=== PATIENT | male | born 1950 | race Caucasian/White ===

== ENCOUNTER 2016-07-09 09:16 | Outpatient (CLI) | payer MEDICARE, OTHER | END 2016-07-09 09:17 | disposition home or self-care (01) | DX: E11.9 Type 2 diabetes mellitus without complications (principal); D50.9 Iron deficiency anemia, unspecified ==

== ENCOUNTER 2016-07-10 10:35 | Outpatient (CLI) | payer MEDICARE, OTHER | END 2016-07-10 10:36 | disposition home or self-care (01) | DX: D64.9 Anemia, unspecified (principal) ==

== ENCOUNTER 2016-07-16 15:50 | Outpatient (CLI) | payer MEDICARE, OTHER | END 2016-07-16 15:51 | disposition home or self-care (01) | DX: G47.33 Obstructive sleep apnea (adult) (pediatric) (principal) | CPT/HCPCS: 99215; G0463 ==

== ENCOUNTER 2016-09-04 15:37 | Outpatient (CLI) | payer MEDICARE, OTHER | END 2016-09-04 15:38 | disposition home or self-care (01) | DX: G47.33 Obstructive sleep apnea (adult) (pediatric) (principal) | CPT/HCPCS: 99214; G0463 ==

== ENCOUNTER 2016-10-04 10:31 | Outpatient (CLI) | payer MEDICARE, OTHER | END 2016-10-04 10:32 | disposition home or self-care (01) | DX: E11.9 Type 2 diabetes mellitus without complications (principal) ==

== ENCOUNTER 2016-11-06 15:44 | Outpatient (CLI) | payer MEDICARE, OTHER | END 2016-11-06 15:45 | disposition home or self-care (01) | LOC: SC 15:44 | PROVIDERS: ATTEND Nurse Practitioner Family | DX: G47.33 Obstructive sleep apnea (adult) (pediatric) (principal) | CPT/HCPCS: 99214; G0463; 99212 ==

== ENCOUNTER 2017-01-08 08:35 | Outpatient (CLI) | payer MEDICARE, OTHER ==
[2017-01-08 14:01] LABS: BASOPHILS # (AUTO) 0.1 10^3/uL (0.0-0.1); BASOPHILS % (AUTO) 0.9 %; EOSINOPHILS # (AUTO) 0.2 10^3/uL (0.0-0.7); EOSINOPHILS % (AUTO) 3.1 %; HCT - HEMATOCRIT 29.3 % (42.0-52.0); HGB - HEMOGLOBIN 10.8 g/dL (14.0-18.0); LYMPHOCYTES % (AUTO) 15.5 %; MEAN CORPUSCULAR HEMOGLOBIN 32.9 pg (27.0-31.0); MEAN CORPUSCULAR HGB CONC 36.9 g/dL (32.0-36.0); MEAN CORPUSCULAR VOLUME 89.2 fL (80.0-94.0); MEAN PLATELET VOLUME 7.6 fL (7.4-11.4); MONOCYTES # (AUTO) 0.6 10^3/uL (0.0-1.0); NEUTROPHILS # (AUTO) 4.6 10^3/uL (1.5-6.6); NEUTROPHILS % (AUTO) 71.5 %; RED BLOOD COUNT 3.29 10^6/uL (4.70-6.10); RED CELL DISTRIBUTION WIDTH 12.8 % (12.0-15.0); UNCORRECTED WHITE BLOOD COUNT 6.4 x10^3/uL; WHITE BLOOD COUNT 6.4 x10^3/uL (4.8-10.8)
[2017-01-08 14:21] LABS: HEMOGLOBIN A1C 0.64 g/dL
== END 2017-01-08 08:36 | disposition home or self-care (01) ==
LOC: LAB.WCP 08:35
PROVIDERS: ATTEND Family Medicine
DX: D64.9 Anemia, unspecified (principal); E11.9 Type 2 diabetes mellitus without complications; I25.10 Atherosclerotic heart disease of native coronary artery without angina pectoris; I10 Essential (primary) hypertension
CPT/HCPCS: 36415; 83036; 85025

== ENCOUNTER 2017-02-06 08:36 | Outpatient (CLI) | payer MEDICARE, OTHER ==
[2017-02-06 12:32] LABS: BASOPHILS % (AUTO) 1.1 %; EOSINOPHILS # (AUTO) 0.2 10^3/uL (0.0-0.7); EOSINOPHILS % (AUTO) 4.6 %; HCT - HEMATOCRIT 28.7 % (42.0-52.0); HGB - HEMOGLOBIN 10.4 g/dL (14.0-18.0); LYMPHOCYTES # (AUTO) 0.8 10^3/uL (1.5-3.5); LYMPHOCYTES % (AUTO) 19.9 %; MEAN CORPUSCULAR HEMOGLOBIN 32.5 pg (27.0-31.0); MEAN CORPUSCULAR HGB CONC 36.1 g/dL (32.0-36.0); MEAN CORPUSCULAR VOLUME 90.1 fL (80.0-94.0); MEAN PLATELET VOLUME 7.8 fL (7.4-11.4); MONOCYTES # (AUTO) 0.5 10^3/uL (0.0-1.0); MONOCYTES % (AUTO) 12.1 %; NEUTROPHILS # (AUTO) 2.5 10^3/uL (1.5-6.6); NEUTROPHILS % (AUTO) 62.3 %; RED BLOOD COUNT 3.19 10^6/uL (4.70-6.10); RED CELL DISTRIBUTION WIDTH 13.2 % (12.0-15.0)
== END 2017-02-06 08:37 | disposition home or self-care (01) ==
LOC: LAB.WCP 08:36
PROVIDERS: ATTEND Family Medicine
DX: D64.9 Anemia, unspecified (principal)
CPT/HCPCS: 36415; 85025

== ENCOUNTER 2017-02-12 15:39 | Outpatient (CLI) | payer MEDICARE, OTHER | END 2017-02-12 15:40 | disposition home or self-care (01) | LOC: SC 15:39 | PROVIDERS: ATTEND Nurse Practitioner Family | DX: G47.33 Obstructive sleep apnea (adult) (pediatric) (principal) | CPT/HCPCS: 99214; G0463; 99212 ==

== ENCOUNTER 2017-03-13 15:13 | Emergency (ER) | payer MEDICARE, OTHER ==
[2017-03-13 15:54] LABS: CALCIUM 9.6 mg/dL (8.5-10.3); POTASSIUM 5.3 mmol/L (3.5-5.0)
--- NOTE | 2017-03-13 16:49 | ED Physician Documentation ---
History of Present Illness - Stated complaint Stated Complaint: ABN LABS/EKG - Chief complaint Chief Complaint: General - History obtained from History obtained from: Patient - History of Present Illness Timing: Other (66-year-old gentleman without renal disease had follow-up labs done in the clinic and showed a potassium of 6.0 and he was referred here. He feels fine.) Review of Systems Constitutional: denies: Fever, Chills Nose: denies: Rhinorrhea / runny nose, Congestion Cardiac: denies: Chest pain / pressure, Palpitations Respiratory: denies: Dyspnea, Cough PD PAST MEDICAL HISTORY - Past Medical History Past Medical History: Yes Cardiovascular: Hypertension, High cholesterol, Coronary artery disease, [place] Respiratory: Sleep apnea Neuro: None Endocrine/Autoimmune: Type 2 diabetes GI: GERD : None HEENT: Chronic vision loss Psych: Depression Musculoskeletal: Osteoarthritis, Osteoporosis Derm: Eczema - Past Surgical History Past Surgical History: Yes General: Cholecystectomy Ortho: Carpal Tunnel surgery Cardiovascular: Coronary stent HEENT: Cataracts - Present Medications Home Medications: Ambulatory Orders Medication Instructions Recorded Confirmed Fluoxetine HCl [Prozac] 60 mg PO DAILY 07/11/14 03/13/17 Aspirin [James Chewable Aspirin] 1 tab PO DAILY 07/27/15 03/13/17 Carvedilol Phosphate [Coreg Cr] 1 cap PO DAILY 07/27/15 03/13/17 Cholecalciferol (Vitamin D3) 1,000 unit PO DAILY 07/27/15 03/13/17 [Vitamin D3] Famotidine [Pepcid AC] 20 mg PO DAILY 07/27/15 03/13/17 Ferrous Sulfate 1 tab PO DAILY 07/27/15 03/13/17 Gemfibrozil 1 tab PO BID 07/27/15 03/13/17 Insulin Lispro [Humalog Kwikpen 30 - 40 units SUBQ TIDWM 07/27/15 03/13/17 U-100] Multivitamin [Multivitamins] 1 cap PO DAILY 07/27/15 03/13/17 Rosuvastatin Calcium [Crestor] 1 tab PO QPM 07/27/15 03/13/17 traZODone [Desyrel] 50 mg PO DAILY PRN 07/27/15 03/13/17 Albiglutide [Tanzeum] 30 mg PO Q7D 03/13/17 03/13/17 Ezetimibe [Zetia] 10 mg PO DAILY 03/13/17 03/13/17 Losartan [Cozaar] 50 mg PO DAILY 03/13/17 03/13/17 Turmeric Root Extract [Turmeric] 500 mg PO DAILY 03/13/17 03/13/17 - Allergies Allergies/Adverse Reactions: Allergies Allergy/AdvReac Type Severity Reaction Status Date / Time fexofenadine Allergy Unknown Unknown Verified 03/13/17 15:21 guaifenesin Allergy Unknown Unknown Verified 03/13/17 15:21 atorvastatin calcium * Allergy Unknown Verified 03/13/17 15:21 [From Lipitor] shellfish derived AdvReac Intermediate Emesis Verified 03/13/17 15:21 - Social History Does the pt smoke?: No Smoking Status: Never smoker Does the pt drink ETOH?: No Does the pt have substance abuse?: No - Immunizations Immunizations are current?: Yes - POLST Patient has POLST: No PD ED PE NORMAL - Vitals Vital signs reviewed: Yes - General General: Alert and oriented X 3, No acute distress - Derm Derm: Normal color, Warm and dry - Extremities Extremities: No deformity, No tenderness to palpate, No calf tenderness / cord - Neuro Neuro: Alert and oriented X 3, Normal speech - Psych Psych: Normal mood, Normal affect Results - Vitals Vitals: Vital Signs - 24 hr 03/13/17 15:17 Temperature 36.4 C L Heart Rate 78 Respiratory 20 Rate Blood Pressure 145/75 H O2 Saturation 97 Oxygen O2 Source Room air - Labs Labs: Laboratory Tests 03/13/17 15:41 Sodium 137 Potassium 5.3 H Chloride 106 Carbon Dioxide 25 Anion Gap 6.0 BUN 23 H Creatinine 1.0 Estimated GFR (MDRD) 75 L Glucose 164 H Calcium 9.6 PD MEDICAL DECISION MAKING - ED course ED course: Recheck potassium was much lower confirming some level of pseudohyperkalemia. Departure - Departure Disposition: 01 Home, Self Care Clinical Impression: Hyperkalemia Hypertension Qualifiers: Hypertension type: essential hypertension Qualified Code(s): I10 - Essential ( primary) hypertension Condition: Good Record reviewed to determine appropriate education?: Yes Instructions: Diet Low Potassium Dc Comments: Drink a large glass of water tonight and eat a low potassium diet as outlined on the other pages. Follow-up with your doctor in 1 week for recheck and repeat labs.
[2017-03-13 16:55] VITALS: BP 145/76
== END 2017-03-13 16:54 | disposition home or self-care (01) ==
LOC: ED 15:13
DX: E87.5 Hyperkalemia (principal); E78.00 Pure hypercholesterolemia, unspecified; I25.10 Atherosclerotic heart disease of native coronary artery without angina pectoris; I25.2 Old myocardial infarction; G47.30 Sleep apnea, unspecified; E11.9 Type 2 diabetes mellitus without complications; Z79.4 Long term (current) use of insulin; K21.9 Gastro-esophageal reflux disease without esophagitis; M19.90 Unspecified osteoarthritis, unspecified site; Z79.82 Long term (current) use of aspirin
CPT/HCPCS: 80048; 93005; 99282

== ENCOUNTER 2017-03-18 14:49 | Outpatient (CLI) | payer MEDICARE, OTHER ==
[2017-03-18 19:41] LABS: ALBUMIN/GLOBULIN RATIO 1.3 (1.0-2.2); BILIRUBIN,TOTAL 0.7 mg/dL (0.2-1.0); BUN - BLOOD UREA NITROGEN 21 mg/dL (6-20); CALCIUM 10.1 mg/dL (8.5-10.3); CARBON DIOXIDE - CO2 24 mmol/L (21-32); CHLORIDE 104 mmol/L (101-111); CHOL/HDL RATIO 3.5 (<5.0); CHOLESTEROL 129 mg/dL; CREATININE 0.9 mg/dL (0.6-1.2); GFR - MDRD 84 (>89); GLUCOSE 100 mg/dL (70-100); HDL CHOLESTEROL 37 mg/dL; LDL/HDL RATIO 1.1 (<3.6); SODIUM 137 mmol/L (135-145); TOTAL PROTEIN 7.7 g/dL (6.7-8.2); TRIGLYCERIDES 260 mg/dL; VLDL CHOLESTEROL 52 mg/dL
[2017-03-18 20:50] LABS: HEMOGLOBIN A1C 0.77 g/dL
== END 2017-03-18 14:50 | disposition home or self-care (01) ==
LOC: LAB.WCP 14:49
PROVIDERS: ATTEND Family Medicine
DX: E11.9 Type 2 diabetes mellitus without complications (principal); E87.1 Hypo-osmolality and hyponatremia; E55.9 Vitamin D deficiency, unspecified; I10 Essential (primary) hypertension; E78.5 Hyperlipidemia, unspecified
CPT/HCPCS: 36415; 80053; 80061; 82306; 83036

== ENCOUNTER 2017-05-20 12:30 | Outpatient (CLI) | payer MEDICARE, OTHER ==
[2017-05-20 12:48] LABS: HEMOGLOBIN A1C 0.76 g/dL
== END 2017-05-20 12:31 | disposition home or self-care (01) ==
LOC: LAB.WCP 12:30
PROVIDERS: ATTEND Family Medicine
DX: E11.9 Type 2 diabetes mellitus without complications (principal)
CPT/HCPCS: 36415; 83036

== ENCOUNTER 2017-07-17 10:39 | Emergency (ER) | payer MEDICARE, OTHER ==
[2017-07-17 11:16] LABS: BASOPHILS # (AUTO) 0.1 10^3/uL (0.0-0.1); BASOPHILS % (AUTO) 1.1 %; EOSINOPHILS # (AUTO) 0.2 10^3/uL (0.0-0.7); EOSINOPHILS % (AUTO) 3.7 %; HGB - HEMOGLOBIN 10.5 g/dL (14.0-18.0); LYMPHOCYTES # (AUTO) 0.9 10^3/uL (1.5-3.5); LYMPHOCYTES % (AUTO) 19.4 %; MEAN CORPUSCULAR HEMOGLOBIN 32.2 pg (27.0-31.0); MEAN CORPUSCULAR VOLUME 89.5 fL (80.0-94.0); MEAN PLATELET VOLUME 7.1 fL (7.4-11.4); MONOCYTES # (AUTO) 0.3 10^3/uL (0.0-1.0); MONOCYTES % (AUTO) 7.5 %; NEUTROPHILS # (AUTO) 3.1 10^3/uL (1.5-6.6); NEUTROPHILS % (AUTO) 68.3 %; PLT - PLATELET COUNT 267 10^3/uL (130-450); RED BLOOD COUNT 3.26 10^6/uL (4.70-6.10); RED CELL DISTRIBUTION WIDTH 12.3 % (12.0-15.0); WHITE BLOOD COUNT 4.5 x10^3/uL (4.8-10.8)
[2017-07-17 11:32] LABS: ALBUMIN 3.9 g/dL (3.2-5.5); ALBUMIN/GLOBULIN RATIO 1.1 (1.0-2.2); BILIRUBIN,TOTAL 0.5 mg/dL (0.2-1.0); CALCIUM 9.8 mg/dL (8.5-10.3); TOTAL PROTEIN 7.5 g/dL (6.7-8.2)
--- NOTE | 2017-07-17 13:05 | ED Physician Documentation ---
PD HPI CHEST PAIN - Stated complaint Stated Complaint: CHEST PX/SOA - Chief complaint Chief Complaint: Cardiac - History obtained from History obtained from: Patient - History of Present Illness Timing - onset: How many days ago (2) Timing - onset during: Light activity Timing - duration: Days (2) Timing - details: Gradual onset, Still present, Waxing and waning Quality: Aching, Pain Location: Left chest, Left shoulder/arm Radiation: Back Improved by: Rest Worsened by: Exertion, Inspiration, Movement, Palpation Associated symptoms: Shortness of air, Cough. No: Nausea, Vomiting, Feeling faint / dizzy, General Weakness, Palpitations Recently seen: Not recently seen Review of Systems Constitutional: reports: Myalgias, Fatigue. denies: Fever, Chills Nose: reports: Congestion Throat: denies: Sore throat Cardiac: reports: Chest pain / pressure. denies: Palpitations, Pedal edema, Calf pain Respiratory: reports: Cough. denies: Dyspnea, Wheezing GI: reports: Nausea. denies: Abdominal Pain, Vomiting, Diarrhea Skin: denies: Rash, Lesions Musculoskeletal: denies: Neck pain, Back pain Neurologic: reports: Generalized weakness. denies: Focal weakness, Numbness, Near syncope PD PAST MEDICAL HISTORY - Past Medical History Cardiovascular: Hypertension, High cholesterol, Coronary artery disease, [place] Respiratory: Sleep apnea Neuro: None Endocrine/Autoimmune: Type 2 diabetes GI: GERD : None HEENT: Chronic vision loss Psych: Depression Musculoskeletal: Osteoarthritis, Osteoporosis Derm: Eczema - Past Surgical History Past Surgical History: Yes General: Cholecystectomy Ortho: Carpal Tunnel surgery Cardiovascular: Coronary stent HEENT: Cataracts - Present Medications Home Medications: Ambulatory Orders Medication Instructions Recorded Confirmed Fluoxetine HCl [Prozac] 60 mg PO DAILY 07/11/14 04/24/17 Aspirin [James Chewable Aspirin] 1 tab PO DAILY 07/27/15 04/24/17 Carvedilol Phosphate [Coreg Cr] 1 cap PO DAILY 07/27/15 04/24/17 Cholecalciferol (Vitamin D3) 1,000 unit PO DAILY 07/27/15 04/24/17 [Vitamin D3] Famotidine [Pepcid AC] 20 mg PO DAILY 07/27/15 04/24/17 Ferrous Sulfate 1 tab PO DAILY 07/27/15 04/24/17 Gemfibrozil 1 tab PO BID 07/27/15 04/24/17 Insulin Lispro [Humalog Kwikpen 30 - 40 units SUBQ TIDWM 07/27/15 04/24/17 U-100] Multivitamin [Multivitamins] 1 cap PO DAILY 07/27/15 04/24/17 Rosuvastatin Calcium [Crestor] 1 tab PO QPM 07/27/15 04/24/17 traZODone [Desyrel] 50 mg PO DAILY PRN 07/27/15 04/24/17 Albiglutide [Tanzeum] 30 mg PO Q7D 03/13/17 04/24/17 Ezetimibe [Zetia] 10 mg PO DAILY 03/13/17 04/24/17 Losartan [Cozaar] 50 mg PO DAILY 03/13/17 04/24/17 Turmeric Root Extract [Turmeric] 500 mg PO DAILY 03/13/17 04/24/17 Benzonatate [Tessalon] 100 mg PO TID PRN #25 capsule 07/17/17 Doxycycline Monohydrate 100 mg PO BID #14 tablet 07/17/17 Naproxen [Naprosyn] 500 mg PO BID #20 tablet 07/17/17 - Allergies Allergies/Adverse Reactions: Allergies Allergy/AdvReac Type Severity Reaction Status Date / Time fexofenadine Allergy Unknown Unknown Verified 03/13/17 15:21 guaifenesin Allergy Unknown Unknown Verified 03/13/17 15:21 atorvastatin calcium * Allergy Unknown Verified 03/13/17 15:21 [From Lipitor] shellfish derived AdvReac Intermediate Emesis Verified 07/17/17 11:25 - Social History Does the pt smoke?: No Smoking Status: Never smoker Does the pt drink ETOH?: No Does the pt have substance abuse?: No - Immunizations Immunizations are current?: Yes - POLST Patient has POLST: No PD ED PE NORMAL - Vitals Vital signs reviewed: Yes - General General: Alert and oriented X 3, No acute distress, Well developed/nourished - HEENT HEENT: Ears normal, Pharynx benign - Neck Neck: Supple, no meningeal sign, No adenopathy - Cardiac Cardiac: RRR, No murmur - Respiratory Respiratory: Clear bilaterally, Other (anterior chest wall tenderness parasternal area. No rash nor sores. ) - Abdomen Abdomen: Soft, Non tender - Back Back: No CVA TTP - Derm Derm: Normal color, Warm and dry, No rash - Extremities Extremities: Normal ROM s pain, No edema, No calf tenderness / cord - Neuro Neuro: Alert and oriented X 3, No motor deficit, Normal speech - Psych Psych: Normal mood, Normal affect Results - Vitals Vitals: Oxygen O2 Source Room air - EKG (time done) 10:48 Rate: Rate (enter#) (69) Rhythm: NSR [place]: Normal Intervals: Normal RI QRS: Normal Ischemia: Normal ST segments. No: ST elevation c/w ischemia, ST depression Compare to prior EKG: Old EKG unavailable - Labs Labs: Laboratory Tests 07/17/17 07/17/17 07/17/17 10:50 10:55 10:55 WBC 4.5 L RBC 3.26 L Hgb 10.5 L Hct 29.2 L MCV 89.5 MCH 32.2 H MCHC 36.0 RDW 12.3 Plt Count 267 MPV 7.1 L Neut # 3.1 Lymph # 0.9 L [place] # 0.3 Eos # 0.2 Baso # 0.1 Absolute Nucleated RBC 0.00 Nucleated RBC % 0.0 Sodium 137 Potassium 5.0 Chloride 105 Carbon Dioxide 22 Anion Gap 10.0 BUN 27 H Creatinine 1.0 Estimated GFR (MDRD) 75 L Glucose 143 H POC Whole Bld Glucose 137 H Calcium 9.8 Total Bilirubin 0.5 AST 24 ALT 16 Alkaline Phosphatase 77 Troponin I Total Protein 7.5 Albumin 3.9 Globulin 3.6 Albumin/Globulin Ratio 1.1 Lipase 30 07/17/17 10:55 WBC RBC Hgb Hct MCV MCH MCHC RDW Plt Count MPV Neut # Lymph # [place] # Eos # Baso # Absolute Nucleated RBC Nucleated RBC % Sodium Potassium Chloride Carbon Dioxide Anion Gap BUN Creatinine Estimated GFR (MDRD) Glucose POC Whole Bld Glucose Calcium Total Bilirubin AST ALT Alkaline Phosphatase Troponin I < 0.04 Total Protein Albumin Globulin Albumin/Globulin Ratio Lipase - Rads (name of study) chest Radiology: Prelim report reviewed, EMP read contemporaneously (no acute findings ) PD MEDICAL DECISION MAKING - ED course Complexity details: reviewed results, re-evaluated patient (chest xray, ECG and labs are good. There is chest wall tenderness to palpation. No risk factors nor exam findings to suggest PE. has had URI symptoms. ), considered differential, d /w patient Departure - Departure Disposition: 01 Home, Self Care Clinical Impression: Chest wall pain Upper respiratory infection Qualifiers: URI type: unspecified URI Qualified Code(s): J06.9 - Acute upper respiratory infection, unspecified Condition: Stable Record reviewed to determine appropriate education?: Yes Instructions: ED Upper Resp Infec Abx Tx, ED Strain Chest Wall Follow-Up: Hermilo Redmond MD [Primary Care Provider] - Prescriptions: Benzonatate [Tessalon] 100 mg PO TID PRN #25 capsule PRN Reason: Cough Doxycycline Monohydrate 100 mg PO BID #14 tablet Naproxen [Naprosyn] 500 mg PO BID #20 tablet Comments: Drink lots of fluids. Continue usual medications. This sounds like a chest cold or bronchial infection with chest wall pain. There is no signs of heart attack or heart failure or pneumonia on your tests. Use naproxen twice daily for the next 7-10 days for the pains and inflammation. Doxycycline twice daily for a week for the infection. Use Tessalon if needed for cough. Recheck if not improving over the next several days. He may have some cough mildly that persists for couple of weeks. Discharge Date/Time: 07/17/17 13:46
--- NOTE | 2017-07-17 13:06 | XRAY Preliminary Report ---
Exam: XR CHEST 1 VIEW X-RAY IMPRESSION: Normal single view chest. [facility] SITE ID: [id number]
--- NOTE | 2017-07-17 13:08 | XRAY Report ---
EXAM: CHEST RADIOGRAPHY EXAM DATE: 07/17/2017 12:42 PM. CLINICAL HISTORY: Chest pain . Shortness of breath for one week. COMPARISON: 06/13/2015. TECHNIQUE: 1 view. FINDINGS: Lungs/Pleura: No focal opacities evident. No pleural effusion. No pneumothorax. Mediastinum: Within exam limitations, the cardiomediastinal contour is normal. Other: Suspect prior bariatric surgery. IMPRESSION: Normal single view chest. [facility] Referring Provider Line: [phone] SITE ID: [id number]
[2017-07-17] MEDS ORDERED: KETOROLAC 60 MG/2 ML VIAL IVP STA (13:27)
[2017-07-17] MEDS ORDERED: BENZONATATE 100 MG CAPSULE PO STA (13:27)
[2017-07-17] MEDS ORDERED: DOXYCYCLINE 100 MG TABLET PO STA (13:27)
[2017-07-17 13:38] VITALS: BP 151/83
== END 2017-07-17 13:46 | disposition home or self-care (01) ==
LOC: ED 10:39
DX: R07.89 Other chest pain (principal); J06.9 Acute upper respiratory infection, unspecified; I10 Essential (primary) hypertension; E78.00 Pure hypercholesterolemia, unspecified; I25.10 Atherosclerotic heart disease of native coronary artery without angina pectoris; I25.2 Old myocardial infarction; G47.30 Sleep apnea, unspecified; E11.9 Type 2 diabetes mellitus without complications; Z79.4 Long term (current) use of insulin; K21.9 Gastro-esophageal reflux disease without esophagitis; M19.90 Unspecified osteoarthritis, unspecified site; Z79.82 Long term (current) use of aspirin
CPT/HCPCS: 36415; 71045; 80053; 83690; 84484; 85025; 93005; 96374; 99284; A9270

== ENCOUNTER 2017-08-19 08:38 | Outpatient (CLI) | payer MEDICARE, OTHER ==
[2017-08-19 13:06] LABS: BASOPHILS # (AUTO) 0.1 10^3/uL (0.0-0.1); BASOPHILS % (AUTO) 0.9 %; EOSINOPHILS # (AUTO) 0.2 10^3/uL (0.0-0.7); EOSINOPHILS % (AUTO) 2.9 %; HGB - HEMOGLOBIN 11.1 g/dL (14.0-18.0); LYMPHOCYTES # (AUTO) 1.1 10^3/uL (1.5-3.5); LYMPHOCYTES % (AUTO) 17.3 %; MEAN CORPUSCULAR HEMOGLOBIN 32.9 pg (27.0-31.0); MEAN CORPUSCULAR HGB CONC 36.8 g/dL (32.0-36.0); MEAN CORPUSCULAR VOLUME 89.4 fL (80.0-94.0); MEAN PLATELET VOLUME 7.6 fL (7.4-11.4); MONOCYTES # (AUTO) 0.5 10^3/uL (0.0-1.0); NEUTROPHILS # (AUTO) 4.6 10^3/uL (1.5-6.6); NEUTROPHILS % (AUTO) 70.9 %; PLT - PLATELET COUNT 302 10^3/uL (130-450); RED BLOOD COUNT 3.37 10^6/uL (4.70-6.10); RED CELL DISTRIBUTION WIDTH 12.4 % (12.0-15.0); WHITE BLOOD COUNT 6.5 x10^3/uL (4.8-10.8)
[2017-08-19 13:19] LABS: PSA FREE 0.81 ng/mL (0.16-2.81)
[2017-08-19 13:20] LABS: PSA TOTAL 4.87 ng/mL (0.000-2.000)
[2017-08-19 13:32] LABS: HB2 TOTAL 11.8 g/dL; HEMOGLOBIN A1C 0.76 g/dL
[2017-08-19 13:48] LABS: ALBUMIN 4.2 g/dL (3.2-5.5); ALBUMIN/GLOBULIN RATIO 1.2 (1.0-2.2); ALKALINE PHOSPHATASE 82 IU/L (42-121); ALT ALANINE AMINOTRANSFERASE 27 IU/L (10-60); AST ASPARTATE AMINOTRANSFERASE 31 IU/L (10-42); BILIRUBIN,TOTAL 0.5 mg/dL (0.2-1.0); BUN - BLOOD UREA NITROGEN 33 mg/dL (6-20); CALCIUM 9.5 mg/dL (8.5-10.3); CARBON DIOXIDE - CO2 21 mmol/L (21-32); CHLORIDE 105 mmol/L (101-111); CHOL/HDL RATIO 3.7 (<5.0); CHOLESTEROL 121 mg/dL; CREATININE 1.1 mg/dL (0.6-1.2); GFR - MDRD 67 (>89); GLUCOSE 86 mg/dL (70-100); HDL CHOLESTEROL 33 mg/dL; LDL CHOLESTEROL,CALCULATED 25 mg/dL; LDL/HDL RATIO 0.8 (<3.6); SODIUM 136 mmol/L (135-145); TOTAL PROTEIN 7.7 g/dL (6.7-8.2); VLDL CHOLESTEROL 63 mg/dL
== END 2017-08-19 08:39 | disposition home or self-care (01) ==
LOC: LAB.WCP 08:38
PROVIDERS: ATTEND Family Medicine
DX: D64.9 Anemia, unspecified (principal); E11.9 Type 2 diabetes mellitus without complications; I25.10 Atherosclerotic heart disease of native coronary artery without angina pectoris; I10 Essential (primary) hypertension; E78.5 Hyperlipidemia, unspecified; D50.9 Iron deficiency anemia, unspecified; R97.20 Elevated prostate specific antigen [PSA]
CPT/HCPCS: 36415; 80053; 80061; 83036; 83721; 84154; 85025

== ENCOUNTER 2017-08-21 13:45 | Outpatient (CLI) | payer MEDICARE, OTHER ==
[2017-08-21] MEDS ORDERED: IOPAMIDOL-300 50 ML VIAL ONE (14:10)
[2017-08-21] MEDS ORDERED: IOPAMIDOL-300 100 ML VIAL ONE (14:10)
[2017-08-21] MEDS ORDERED: IOPAMIDOL-300 50 ML VIAL PO ONE (15:17)
[2017-08-21] MEDS ORDERED: IOPAMIDOL-300 100 ML VIAL IVP ONE (15:17)
--- NOTE | 2017-08-22 10:09 | CT Report ---
CT ABDOMEN AND PELVIS WITH AND WITHOUT CONTRAST: 08/21/2017 CLINICAL INDICATION: Abdominal pain, anemia. TECHNIQUE: Axial CT images of the abdomen and pelvis were obtained prior to and following 100 mL Isovue 300 intravenously. Oral contrast was also administered. No previous CT is available for comparison. FINDINGS: Limited evaluation of the lung bases demonstrates minimal atelectasis. ABDOMEN: Postoperative changes of gastric banding are noted in the upper abdomen. Postoperative changes of cholecystectomy are also present. On the unenhanced images, there is no evidence of nephrolithiasis or hydronephrosis. The liver, spleen, pancreas, kidneys and adrenal glands appear unremarkable. No bowel dilatation, free gas or free fluid is present. No abdominal adenopathy is seen. PELVIS: The pelvic organs appear unremarkable. No pelvic adenopathy or free fluid is present. The appendix is seen in the right lower quadrant, and is normal in caliber. Osseous structures demonstrate degenerative changes. IMPRESSION: NO EVIDENT ETIOLOGY FOR PATIENT'S PAIN AND ANEMIA. POSTOPERATIVE CHANGES OF CHOLECYSTECTOMY AND GASTRIC BANDING. In accordance with CT protocol optimization, one or more of the following dose reduction techniques were utilized for this exam: automated exposure control, adjustment of mA and/or KV based on patient size, or use of iterative reconstructive technique. TD: 08/22/2017 10:08 KATE
== END 2017-08-21 13:46 | disposition home or self-care (01) ==
LOC: DI 13:45
PROVIDERS: ATTEND Family Medicine
DX: R10.9 Unspecified abdominal pain (principal); D64.9 Anemia, unspecified; Z90.49 Acquired absence of other specified parts of digestive tract
CPT/HCPCS: 74178; Q9967

== ENCOUNTER 2017-09-11 12:44 | Outpatient (CLI) | payer MEDICARE, OTHER | END 2017-09-11 12:45 | disposition critical access hospital (66) | LOC: EMS 12:44 | PROVIDERS: ATTEND Surgery | DX: S06.9X1A Unspecified intracranial injury with loss of consciousness of 30 minutes or less, initial encounter (principal); W10.9XXA Fall (on) (from) unspecified stairs and steps, initial encounter; Y92.008 Other place in unspecified non-institutional (private) residence as the place of occurrence of the external cause | CPT/HCPCS: A0425; A0427 ==

== ENCOUNTER 2017-09-11 12:56 | Emergency (ER) | payer MEDICARE, OTHER ==
[2017-09-11] MEDS ORDERED: SUCCINYLCHOLINE 200 MG/10 ML VIAL ONE (13:13)
[2017-09-11] MEDS ORDERED: MIDAZOLAM 2 MG/2 ML VIAL ONE ×2 (13:13→13:14)
[2017-09-11 13:23] LABS: BASOPHILS # (AUTO) 0.1 10^3/uL (0.0-0.1); BASOPHILS % (AUTO) 1.2 %; EOSINOPHILS # (AUTO) 0.3 10^3/uL (0.0-0.7); EOSINOPHILS % (AUTO) 3.6 %; HGB - HEMOGLOBIN 11.7 g/dL (14.0-18.0); LYMPHOCYTES # (AUTO) 3.2 10^3/uL (1.5-3.5); LYMPHOCYTES % (AUTO) 34.5 %; MEAN CORPUSCULAR HEMOGLOBIN 32.1 pg (27.0-31.0); MEAN CORPUSCULAR HGB CONC 35.3 g/dL (32.0-36.0); MEAN CORPUSCULAR VOLUME 90.9 fL (80.0-94.0); MEAN PLATELET VOLUME 7.3 fL (7.4-11.4); MONOCYTES # (AUTO) 1.3 10^3/uL (0.0-1.0); MONOCYTES % (AUTO) 14.2 %; NEUTROPHILS # (AUTO) 4.3 10^3/uL (1.5-6.6); NEUTROPHILS % (AUTO) 46.5 %; PLT - PLATELET COUNT 282 10^3/uL (130-450); RED BLOOD COUNT 3.63 10^6/uL (4.70-6.10); WHITE BLOOD COUNT 9.2 x10^3/uL (4.8-10.8)
[2017-09-11 13:29] LABS: PT - PROTHROMBIN TIME 11.6 secs (9.9-12.6)
[2017-09-11 13:36] LABS: ALBUMIN 4.3 g/dL (3.2-5.5); ALBUMIN/GLOBULIN RATIO 1.1 (1.0-2.2); BILIRUBIN,TOTAL 0.7 mg/dL (0.2-1.0); CALCIUM 9.9 mg/dL (8.5-10.3); CREATININE 1.7 mg/dL (0.6-1.2); TOTAL PROTEIN 8.1 g/dL (6.7-8.2)
--- NOTE | 2017-09-11 13:54 | XRAY Preliminary Report ---
Exam: XR CHEST 1 VIEW X-RAY IMPRESSION: 1. Appropriately positioned endotracheal tube. 2. No evidence of pneumothorax or other traumatic injury on supine exam. [facility] SITE ID: [id number]
[2017-09-11] MEDS ORDERED: niCARdipine 20 MG/200 ML 20 MG/200 ML BAG IV STA (13:58)
--- NOTE | 2017-09-11 14:09 | XRAY Report ---
EXAM: CHEST RADIOGRAPHY EXAM DATE: 09/11/2017 01:28 PM. CLINICAL HISTORY: Post intubation. COMPARISON: Chest radiograph 07/17/2017. TECHNIQUE: 1 view. FINDINGS: Lungs/Pleura: The lung bases are completely excluded as is the right lateral chest wall. A backboard is in place creating some artifact particularly over the left chest. No focal consolidation. No defin ite pleural effusion or pneumothorax on supine exam. Mediastinum: Within exam limitations, the cardiomediastinal contour is unremarkable with the exceptio n of a coronary artery stent.. Other: Endotracheal tube terminates approximately 5.3 cm above the stephen. IMPRESSION: 1. Appropriately positioned endotracheal tube. 2. No evidence of pneumothorax or other traumatic injury on supine exam. [facility] Referring Provider Line: [phone] SITE ID: [id number]
[2017-09-11 14:10] LABS: BILIRUBIN,URINE NEGATIVE (NEGATIVE); GLUCOSE, URINE (UA) 100 mg/dL (NEGATIVE); KETONES,URINE (UA) NEGATIVE (NEGATIVE); LEUKOCYTE ESTERASE, URINE NEGATIVE (NEGATIVE); NITRITE,URINE NEGATIVE (NEGATIVE); OCCULT BLOOD,URINE LARGE (NEGATIVE); PROTEIN,URINE 100 mg/dL (NEGATIVE); UROBILINOGEN,URINE 0.2 (NORMAL) E.U./dL (NORMAL)
[2017-09-11 14:12] LABS: CLARITY,URINE CLEAR (CLEAR)
[2017-09-11 14:22] LABS: BACTERIA,URINE Few /HPF (None Seen)
--- NOTE | 2017-09-11 14:22 | CT Preliminary Report ---
Exam: CT CERVICAL SPINE W/O IMPRESSION: Head CT: 1. Large right epidural hematoma with significant [id number] subfalcine herniation measuring up to 23 mm. No evidence of ventricular trapping at this time, though findings raise concern for developme nt of left ventricular trapping. No calvarial fracture demonstrated. 2. Bilateral acute subarachnoid hemorrhage. 3. Right uncal herniation. Cervical Spine CT: No acute abnormality of the cervical spine. [facility] The above findings were discussed with Dr. Georgi Kruger by Dr. Fernando Sandhu at 14:15 hrs on 09/11/17. SITE ID: [id number]
--- NOTE | 2017-09-11 14:22 | CT Preliminary Report ---
Exam: CT HEAD W/O IMPRESSION: Head CT: 1. Large right epidural hematoma with significant [id number] subfalcine herniation measuring up to 23 mm. No evidence of ventricular trapping at this time, though findings raise concern for developme nt of left ventricular trapping. No calvarial fracture demonstrated. 2. Bilateral acute subarachnoid hemorrhage. 3. Right uncal herniation. Cervical Spine CT: No acute abnormality of the cervical spine. [facility] The above findings were discussed with Dr. Georgi Kruger by Dr. Fernando Sandhu at 14:15 hrs on 09/11/17. SITE ID: [id number]
[2017-09-11 14:23] LABS: SQUAMOUS EPITHELIAL CELL,UR RARE Squamous (<= Few)
--- NOTE | 2017-09-11 14:27 | ED Physician Documentation ---
PD HPI MAJOR TRAUMA - Stated complaint Stated Complaint: HEAD TRAUMA - Chief complaint Chief Complaint: Trauma Hd/Nk - History obtained from History obtained from: Family (spouse), EMS - History of Present Illness Mechanism of injury: Fell Where injury occurred: Home Timing - onset: How many minutes ago (30) Injury(ies) location: Head Associated symptoms: LOC - Additional information Additional information: The patient is a 66-year-old male who presents via ambulance after head trauma that occurred about 30 minutes prior to arrival. The patient was moving a dresser down a flight of stairs when he fell, and the dresser fell on top of him. His heard the fall and immediately called 911. When medics arrived the patient was awake and able to communicate, but he lost consciousness while being transported to the hospital. He arrives on a backboard with cervical mobilization, and is comatose with sonorous respirations. His past medical history significant for coronary artery disease, type 2 diabetes, hyperlipidemia, and hypertension. Review of Systems Unable to obtain: Unresponsive PD PAST MEDICAL HISTORY - Past Medical History Past Medical History: Yes Cardiovascular: Hypertension, High cholesterol, Coronary artery disease, [place] Respiratory: Sleep apnea Neuro: None Endocrine/Autoimmune: Type 2 diabetes GI: GERD : None HEENT: Chronic vision loss Psych: Depression Musculoskeletal: Osteoarthritis, Osteoporosis Derm: Eczema - Past Surgical History Past Surgical History: Yes General: Cholecystectomy Ortho: Carpal Tunnel surgery Cardiovascular: Coronary stent HEENT: Cataracts - Present Medications Home Medications: Ambulatory Orders Medication Instructions Recorded Confirmed Fluoxetine HCl [Prozac] 60 mg PO DAILY 07/11/14 07/24/17 Aspirin [James Chewable Aspirin] 1 tab PO DAILY 07/27/15 07/24/17 Carvedilol Phosphate [Coreg Cr] 1 cap PO DAILY 07/27/15 07/24/17 Cholecalciferol (Vitamin D3) 1,000 unit PO DAILY 07/27/15 07/24/17 [Vitamin D3] Famotidine [Pepcid AC] 20 mg PO DAILY 07/27/15 07/24/17 Ferrous Sulfate 1 tab PO DAILY 07/27/15 07/24/17 Gemfibrozil 1 tab PO BID 07/27/15 07/24/17 Insulin Lispro [Humalog Kwikpen 30 - 40 units SUBQ TIDWM 07/27/15 07/24/17 U-100] Multivitamin [Multivitamins] 1 cap PO DAILY 07/27/15 07/24/17 Rosuvastatin Calcium [Crestor] 1 tab PO QPM 07/27/15 07/24/17 traZODone [Desyrel] 50 mg PO DAILY PRN 07/27/15 07/24/17 Albiglutide [Tanzeum] 30 mg PO Q7D 03/13/17 07/24/17 Ezetimibe [Zetia] 10 mg PO DAILY 03/13/17 07/24/17 Losartan [Cozaar] 50 mg PO DAILY 03/13/17 07/24/17 Turmeric Root Extract [Turmeric] 500 mg PO DAILY 03/13/17 07/24/17 Benzonatate [Tessalon] 100 mg PO TID PRN #25 capsule 07/17/17 07/24/17 Doxycycline Monohydrate 100 mg PO BID #14 tablet 07/17/17 07/24/17 Naproxen [Naprosyn] 500 mg PO BID #20 tablet 07/17/17 07/24/17 - Allergies Allergies/Adverse Reactions: Allergies Allergy/AdvReac Type Severity Reaction Status Date / Time fexofenadine Allergy Unknown Unknown Verified 03/13/17 15:21 guaifenesin Allergy Unknown Unknown Verified 03/13/17 15:21 atorvastatin calcium * Allergy Unknown Verified 03/13/17 15:21 [From Lipitor] shellfish derived AdvReac Intermediate Emesis Verified 07/17/17 11:25 - Social History Does the pt smoke?: No Smoking Status: Never smoker Does the pt drink ETOH?: No Does the pt have substance abuse?: No - Immunizations Immunizations are current?: Yes - POLST Patient has POLST: No PD ED PE NORMAL - Vitals Vital signs reviewed: Yes (Hypertensive) - General General: Other (Comatose) - HEENT HEENT: Other (Right pupil is enlarged and nonreactive, left pupil is 4 mm and nonreactive. There is a left parietal scalp hematoma and overlying abrasion.) - Cardiac Cardiac: RRR - Respiratory Respiratory: Clear bilaterally - Abdomen Abdomen: Soft, Other (Rotund abdomen.) - Derm Derm: Normal color - Extremities Extremities: No deformity - Neuro Neuro: Other (The patient is comatose and does not respond to noxious stimulation. His right pupil is 6 mm and nonreactive, left pupil is 4 mm and nonreactive.) Eye Opening: None Motor: None Verbal: None GCS Score: 3 Results - Vitals Vitals: Vital Signs - 24 hr 09/11/17 09/11/17 09/11/17 13:07 13:14 13:21 Temperature 36.8 C Heart Rate 97 66 85 Respiratory 15 12 19 Rate Blood Pressure 137/90 H 218/119 H 173/101 H O2 Saturation 100 100 100 09/11/17 09/11/17 09/11/17 13:48 13:53 14:12 Temperature Heart Rate 76 81 Respiratory 12 12 15 Rate Blood Pressure 185/104 H 245/130 H 211/107 H O2 Saturation 100 09/11/17 09/11/17 09/11/17 14:30 14:42 14:52 Temperature Heart Rate 89 90 87 Respiratory 14 12 14 Rate Blood Pressure 193/95 H 201/83 H 162/81 H O2 Saturation 100 100 97 Oxygen O2 Source Mechanical ventilator - EKG (time done) 13:49 Rate: Rate (enter#) (84) Rhythm: NSR [place]: LAD (borderline) Intervals: Normal HI QRS: Normal Ischemia: Normal ST segments Computer interpretation: Agree with computer - Labs Labs: Laboratory Tests 09/11/17 09/11/17 09/11/17 13:07 13:07 13:07 WBC 9.2 RBC 3.63 L Hgb 11.7 L Hct 33.0 L MCV 90.9 MCH 32.1 H MCHC 35.3 RDW 13.0 Plt Count 282 MPV 7.3 L Neut # 4.3 Lymph # 3.2 [place] # 1.3 H Eos # 0.3 Baso # 0.1 Absolute Nucleated RBC 0.00 Nucleated RBC % 0.0 PT 11.6 INR 1.0 APTT 29.8 Sodium 134 L Potassium 5.2 H Chloride 101 Carbon Dioxide 24 Anion Gap 9.0 BUN 32 H Creatinine 1.7 H Estimated GFR (MDRD) 40 L Glucose 222 H Lactic Acid Calcium 9.9 Total Bilirubin 0.7 AST 28 ALT 18 Alkaline Phosphatase 89 Total Protein 8.1 Albumin 4.3 Globulin 3.8 Albumin/Globulin Ratio 1.1 Lipase 21 L Urine Color Urine Clarity Urine pH Ur Specific [place] Urine Protein Urine Glucose (UA) Urine Ketones Urine Occult Blood Urine Nitrite Urine Bilirubin Urine Urobilinogen Ur Leukocyte Esterase Urine RBC Urine WBC Ur Squamous Epith Cells Urine Bacteria Urine Casts Ur Microscopic Review Urine Culture Comments 09/11/17 09/11/17 13:07 14:01 WBC RBC Hgb Hct MCV MCH MCHC RDW Plt Count MPV Neut # Lymph # [place] # Eos # Baso # Absolute Nucleated RBC Nucleated RBC % PT INR APTT Sodium Potassium Chloride Carbon Dioxide Anion Gap BUN Creatinine Estimated GFR (MDRD) Glucose Lactic Acid 3.4 H* Calcium Total Bilirubin AST ALT Alkaline Phosphatase Total Protein Albumin Globulin Albumin/Globulin Ratio Lipase Urine Color YELLOW Urine Clarity CLEAR Urine pH 6.0 Ur Specific Grant 1.025 Urine Protein 100 H Urine Glucose (UA) 100 H Urine Ketones NEGATIVE Urine Occult Blood LARGE H Urine Nitrite NEGATIVE Urine Bilirubin NEGATIVE Urine Urobilinogen 0.2 (NORMAL) Ur Leukocyte Esterase NEGATIVE Urine RBC 6-10 H Urine WBC 0-3 Ur Squamous Epith Cells RARE Squamous Urine Bacteria Few Urine Casts 0-2 Cellular Casts Ur Microscopic Review INDICATED Urine Culture Comments NOT INDICATED - Rads (name of study) Head CT w/o Radiology: Prelim report reviewed, EMP read contemporaneously, See rad report ( Large right epidural hemorrhage with subdural component, with right to left midline shift. There also appears to be uncal herniation.) C-spine CT Radiology: Prelim report reviewed, EMP read contemporaneously, See rad report ( No acute bony abnormality detected.) Chest CT w/o Radiology: Prelim report reviewed, EMP read contemporaneously, See rad report ( No acute findings on chest CT.) CT Abd/pelvis w/o Radiology: Prelim report reviewed, EMP read contemporaneously, See rad report ( No acute findings on CT of the abdomen and pelvis.) CXR post intubation Radiology: Prelim report reviewed, EMP read contemporaneously, See rad report ( No evidence of pneumothorax or rib fractures. Endotracheal tube appears to be in good position.) Procedures - Intubation Provider: Anesthesia Medications: Succinylcholine Blade: Glidescope Tube: Size-enter number (8 Fr.), Cuffed Route: Oral Confirmation: Direct visualization, Bilateral breath sounds, No abdominal breath sound, End tidal CO2, Pulse ox, Chest xray Complications: No compications PD MEDICAL DECISION MAKING - ED course Complexity details: reviewed results, re-evaluated patient, considered differential, d/w family, d/w investment consultant ED course: Patient's presentation is significant for a massive epidural hematoma with right to left midline shift with uncal herniation. He has been comatose since arrival in the emergency department. Upon arrival he was intubated using a glide scope with C-spine remaining immobilized. He was intubated by the nurse trampoline team coach, Cl Mejia, using an 8 [place] endotracheal tube. There were no complications during intubation. The patient's blood pressure gradually increased over the next 30 minutes to a high of 245/170. He was started on a nicardipine drip. I discussed his condition with the trauma doctor at [facility], Dr. Freeman, who accepts him in transfer. He is being transported by airlift. Transfer forms were completed. I discussed his critical condition and transfer with his . . Departure - Departure Disposition: 02 Transfer Acute Care Hosp Clinical Impression: Epidural hemorrhage Qualifiers: Encounter type: initial encounter Loss of consciousness presence/duration: with LOC > 24 hr without return to prior conscious level, patient surviving Qualified Code(s): S06.4X6A - Epidural hemorrhage with loss of consciousness greater than 24 hours without return to pre-existing conscious level with patient surviving, initial encounter Comatose Qualifiers: Coma depth: Woo coma 3-8 Coma timing: at hospital admission Qualified Code( s): R40.2433 - [place] coma scale score 3-8, at hospital admission Condition: Critical Discharge Date/Time: 09/11/17 15:10
--- NOTE | 2017-09-11 14:30 | CT Preliminary Report ---
Exam: CT CHEST W/O IMPRESSION: 1. No evidence of traumatic abnormality of the chest. Specifically no pneumothorax or displaced rib f ractures demonstrated. 2. Presumed mild sub-segmental atelectasis involving the left upper lobe posteriorly as well as the d ependent lower lobes. 3. Nonspecific solid pulmonary nodules measuring <6 mm. Recommend follow-up of the described nodule(s) according to the following guidelines: Fleischner Society Recommendations 2017 MacMahon et al. Radiology 2017 Solid Nodules-Low Risk Patients: <6 mm (single or multiple) - No routine follow-up* Solid Nodules-High Risk Patients: <6 mm (single or multiple) -Optional CT at 12 months* *Nodules < 6mm do not require routine follow-up, but suspicious nodule morphology, upper lobe locatio n, or both may warrant 12 month follow-up The above findings of no evidence of acute or traumatic thoracic abnormality were discussed with Dr. Georgi Kruger by Dr. Fernando Sandhu at 14:15 hrs on 09/11/17. [facility] SITE ID: [id number]
--- NOTE | 2017-09-11 14:36 | CT Preliminary Report ---
Exam: CT ABDOMEN/PELVIS W/O IMPRESSION: 1. No evidence of acute or traumatic abnormality of the abdomen or pelvis. 2. Mild hepatosplenomegaly of uncertain etiology and clinical significance. The above findings of no evidence of acute or traumatic intra-abdominal or pelvic abnormality were di scussed with Dr. Georgi Kruger by Dr. Fernando Sandhu at 14:15 hrs on 09/11/17. [facility] SITE ID: [id number]
--- NOTE | 2017-09-11 14:37 | CT Report ---
EXAM: CT HEAD AND CERVICAL SPINE WITHOUT CONTRAST EXAM DATE: 09/11/2017 01:34 PM. CLINICAL HISTORY: Head injury, fall, comatose. COMPARISON: None. TECHNIQUE: Noncontrast axial sections through the head and cervical spine. Reformats: Coronal and sag ittal of the cervical spine. Coronal of the head. In accordance with CT protocol optimization, one or more of the following dose reduction techniques w ere utilized for this exam: automated exposure control, adjustment of mA and/or KV based on patient s ize, or use of iterative reconstructive technique. FINDINGS CT HEAD: Parenchyma: No definite intraparenchymal hemorrhage. There is a large amount of mass effect with righ t-to-left shift and subfalcine herniation measuring 23 mm (08/10). There is right uncal herniation as well. There is an acute large right frontal epidural hematoma measuring up to 28 mm in depth with und erlying sulcal effacement (08/14). There is bilateral subarachnoid hemorrhage as well (for example 07/19 1). Sutton-white matter differentiation appears maintained in the left cerebral hemisphere, somewhat diffic ult to differentiate in the right frontal lobe underlying the large extra-axial hematoma. No chronic infarct in a large vascular territory. Extraaxial Spaces: Acute right epidural hematoma as above with bilateral subarachnoid hemorrhage as w ell. Significant mass effect with [id number] midline shift and effacement of the right sulci great er than the left due to the mass effect. Ventricles: The right ventricle is significantly displaced across midline. The right ventricle is jose de jesus ewhat diminutive compared to the left but no definite evidence of trapping at this time, though marline rn for developing trapping given the significant subfalcine herniation is raised. Sinuses and orbits: Nonspecific fluid filling of multiple paranasal sinuses, of uncertain significanc e in the setting of intubation. Visualized orbits and mastoid air cells are unremarkable. Bones: No evidence of fracture or calvarial defect. Other: None. FINDINGS CT CERVICAL SPINE: Alignment: No scoliosis or spondylolisthesis. Bones: No fracture or bone lesion. Interspace Levels/Facets: Prominent ossification of the anterior longitudinal ligament from C3-T1, most pronounced at C4-C5. Mo derate disk height loss at C4-C5 and C7-T1. No significant degenerative facet disease. Mild multileve l canal stenosis due to central disk/osteophyte complexes. No severe spinal canal stenosis at any lev el. No severe neural foraminal stenosis demonstrated at any level. Spinal Canal: Unremarkable. Musculature: No acute abnormality. No asymmetric atrophy. Other: The paravertebral and prevertebral soft tissues are unremarkable with the exception of an 11 m m left lower pole thyroid nodule with calcification, which does not warrant imaging follow-up given t he patient's age. The patient is intubated. Please refer to chest CT for lung findings. IMPRESSION: Head CT: 1. Large right epidural hematoma with significant [id number] subfalcine herniation measuring up to 23 mm. No evidence of ventricular trapping at this time, though findings raise concern for developme nt of left ventricular trapping. No calvarial fracture demonstrated. 2. Bilateral acute subarachnoid hemorrhage. 3. Right uncal herniation. Cervical Spine CT: No acute abnormality of the cervical spine. [facility] The above findings were discussed with Dr. Georgi Kruger by Dr. Fernando Sandhu at 14:15 hrs on 09/11/2017. Referring Provider Line: [phone] SITE ID: [id number]
--- NOTE | 2017-09-11 14:37 | CT Report ---
EXAM: CT CHEST EXAM DATE: 09/11/2017 01:51 PM. CLINICAL HISTORY: Chest trauma. COMPARISONS: Chest radiograph 09/11/2017. Concurrent CT head, CT cervical spine and CT of the abdomen and pelvis without contrast.. TECHNIQUE: Routine helical CT imaging was performed through the chest. IV contrast: None. Reconstruct ions: Coronal and sagittal. Coronal MIP reconstructions In accordance with CT protocol optimization, one or more of the following dose reduction techniques w ere utilized for this exam: automated exposure control, adjustment of mA and/or KV based on patient s ize, or use of iterative reconstructive technique. FINDINGS: Lungs/Pleura: -No mass. There is presumed sub-segmental atelectasis in the left lower lobe posteriorly along the fi ssure as well as bilateral dependent lung bases. -No pneumothorax. No pleural effusion. No evidence of pulmonary laceration or hemorrhage. Small cyst versus pneumatocele in the right upper lobe (3/25). -There are a few scattered small solid pulmonary nodules (for example 5 mm at the right lung base (3/ 37), and fissural nodule at the right lung measuring 5 mm (3/32). -Endotracheal tube terminates approximately 3.7 cm above the stephen. Mediastinum: No cardiac enlargement. There is a trace pericardial effusion. Coronary artery stents an d/or calcifications present. Thoracic aorta is normal in course and caliber. No definite mediastinal or hilar adenopathy by noncontrast exam. Bones: No acute displaced fracture. No suspicious focal osseous lesion. Thoracic DISH present. Visualized Abdomen: Please refer to separately dictated CT of abdomen and pelvis for findings. Other: Small hypodense nodule within the left inferior thyroid lobe measures up to 10 mm with a punct ate calcification, this does not warrant imaging follow-up given the patient's age and small size. No definite abnormally enlarged subclavicular or axillary lymph nodes by noncontrast exam. IMPRESSION: 1. No evidence of a traumatic abnormality of the chest. Specifically, no pneumothorax or displaced ri b fractures demonstrated. 2. Presumed mild subsegmental atelectasis involving the left upper lobe posteriorly as well as the de pendent lower lobes. Alternatively findings could be related to infiltrate/aspiration. 3. Nonspecific solid pulmonary nodules measuring <6 mm. Recommend follow-up of the described nodule(s) according to the following guidelines: Fleischner Society Recommendations 2017 MacMahon et al. Radiology 2017 Solid Nodules-Low Risk Patients: <6 mm (single or multiple) - No routine follow-up* Solid Nodules-High Risk Patients: <6 mm (single or multiple) -Optional CT at 12 months* *Nodules < 6mm do not require routine follow-up, but suspicious nodule morphology, upper lobe locatio n, or both may warrant 12 month follow-up The above findings of no evidence of an acute or traumatic thoracic abnormality were discussed with Jadyn Kruger by Dr. Fernando Sandhu at 14:15 hrs on 09/11/17. [facility] Referring Provider Line: [phone] SITE ID: [id number]
--- NOTE | 2017-09-11 14:45 | CT Report ---
EXAM: CT ABDOMEN AND PELVIS WITHOUT CONTRAST EXAM DATE: 09/11/2017 01:51 PM. CLINICAL HISTORY: Head and chest trauma; comatose. COMPARISONS: Concurrent CT of the head and cervical spine without contrast. Concurrent CT of the ches t without contrast.. TECHNIQUE: Routine helical CT imaging was performed through the abdomen and pelvis. IV contrast: None . Enteric contrast: No. Reconstructions: Coronal and sagittal. In accordance with CT protocol optimization, one or more of the following dose reduction techniques w ere utilized for this exam: automated exposure control, adjustment of mA and/or KV based on patient s ize, or use of iterative reconstructive technique. FINDINGS: Note: Sensitivity is limited due to the lack of intravenous contrast particularly in evaluation of th e solid visceral organs and vasculature. Additionally, sensitivity is decreased due to streak artifac t from the arms being down during the exam. Lung Bases: Please refer to separately dictated CT chest for findings. Liver: Mildly enlarged measuring 18.7 cm at the mid axillary line. Otherwise negative. Gallbladder/Bile Ducts: The gallbladder is absent. No abnormal biliary ductal dilatation. Spleen: Enlarged measuring 14.9 cm. Otherwise unremarkable. Pancreas: Negative. Adrenal Glands: Negative. Kidneys: No hydronephrosis or calculi. No evidence of traumatic injury. There is mild symmetric perin ephric stranding which is nonspecific, possibly senescent. Peritoneal Cavity/Bowel: No free fluid or free air. No gross adenopathy on noncontrast exam. -No evidence of bowel obstruction or inflammation. A lap band is present in customary position. Port over the right upper quadrant abdomen. The appendix is well visualized and normal. Pelvic Organs: Urinary bladder is decompressed with Fagan catheter in place. Prostate and seminal ves icles are unremarkable. Vasculature: No abdominal aortic aneurysm. Mild calcific atherosclerosis present. Bones: No acute displaced fracture. No suspicious focal osseous lesion. Degenerative spondylosis of t he lumbar spine noted. Other: Small right and moderate left fat-containing inguinal hernias. No bowel-containing abdominal w all hernia. IMPRESSION: 1. No evidence of acute or traumatic abnormality of the abdomen or pelvis. 2. Mild hepatosplenomegaly of uncertain etiology and clinical significance. The above findings of no evidence of acute or traumatic intra-abdominal or pelvic abnormality were di scussed with Dr. Georgi Kruger by Dr. Fernando Sandhu at 14:15 hrs on 09/11/2017. [facility] Referring Provider Line: [phone] SITE ID: [id number]
[2017-09-11 15:04] VITALS: BP 162/81
== END 2017-09-11 15:10 | disposition short-term general hospital (02) ==
LOC: EDBD → EDUNIT# → ED 12:56
DX: S06.4X6A Epidural hemorrhage with loss of consciousness greater than 24 hours without return to pre-existing conscious level with patient surviving, initial encounter (principal); W10.9XXA Fall (on) (from) unspecified stairs and steps, initial encounter; W22.8XXA Striking against or struck by other objects, initial encounter; R40.2433 Glasgow coma scale score 3-8, at hospital admission; I10 Essential (primary) hypertension; E11.9 Type 2 diabetes mellitus without complications; Z79.4 Long term (current) use of insulin; I25.10 Atherosclerotic heart disease of native coronary artery without angina pectoris; I25.2 Old myocardial infarction; Z95.5 Presence of coronary angioplasty implant and graft
CPT/HCPCS: 31500; 36415; 51702; 70450; 71045; 71250; 72125; 74176; 80053; 81001; 83605; 83690; 85025; 85610; 85730; 93005; 96365; 99285; G0390; J0330; 81003; 87086